=== PATIENT | male | born 1945 | race Native Hawaiian/Other Pacific Islander ===

== ENCOUNTER 2017-03-07 21:34 | Emergency (ER) | payer MEDICARE ==
[2014-01-07 13:11] VITALS: BMI 28.0
[2017-03-07] MEDS ORDERED: Iohexol 240 (50 ml) PO ONE (22:45)
[2017-03-07] MEDS ORDERED: Sodium Chloride 0.9% 1,000 ML IV ONE (22:46)
[2017-03-07 23:15] LABS: BASO # 0.1 K/uL (0.0-0.2); BASO % 0.5 % (0.0-2.0); EOS # 0.8 K/uL (0.0-0.7); EOS % 6.6 % (0.0-4.0); HEMATOCRIT 41.9 % (35.0-51.0); LYMPH # 1.6 K/uL (1.0-4.3); MEAN CELL VOLUME 88.1 fL (80.0-94.0); MEAN CORPUSCULAR HEMOGLOBIN 29.7 pg (27.0-31.0); MEAN CORPUSCULAR HGB CONC 33.7 g/dL (33.0-37.0); MEAN PLATELET VOLUME 8.2 fL (7.2-11.7); MONO # 0.4 K/uL (0.0-0.8); MONO % 3.4 % (0.0-10.0); RED CELL DISTRIBUTION WIDTH 13.2 % (11.5-14.5); WHITE BLOOD COUNT 12.1 K/uL (4.8-10.8)
[2017-03-07 23:17] LABS: CHLORIDE 92 mmol/L (98-107); POTASSIUM 4.2 mmol/L (3.6-5.2); SODIUM 128 mmol/L (132-148)
[2017-03-07 23:19] LABS: GFR AFRICAN-AMERICAN > 60
[2017-03-07 23:20] LABS: ALB/GLOB RATIO 1.3 (1.0-2.1); ALKALINE PHOSPHATASE 74 U/L (38-126); ALT/SGPT 29 U/L (21-72); AST/SGOT 19 U/L (17-59); BILIRUBIN,TOTAL 0.6 mg/dL (0.2-1.3); BLOOD UREA NITROGEN 13 mg/dL (9-20); CALCIUM 8.5 mg/dl (8.6-10.4); CARBON DIOXIDE 26 mmol/L (22-30); GLUCOSE,RANDOM 164 mg/dL (75-110)
[2017-03-07] MEDS ORDERED: Iohexol 240 (50 ml) ONE (23:22)
[2017-03-07] MEDS ORDERED: Sodium Chloride 0.9% 1,000 ML ONE (23:23)
--- NOTE | 2017-03-08 00:56 | C.PDOC ---
History Of Present Illness 71 year old male presents to the ED with complaints of intermittent abdominal pain fore a few days that began to worsen today. Patient describes pain as severe at times. He denies nausea, vomiting, fever, or chills. Chief Complaint (Nursing): Abdominal Pain History Per: Patient History/Exam Limitations: no limitations Onset/Duration Of Symptoms: Days, Intermittent Episodes, Worse Since (today) Current Symptoms Are (Timing): Still Present Location Of Pain/Discomfort: Diffuse Radiation Of Pain To:: None Quality Of Discomfort: "Pain" Associated Symptoms: denies: Fever, Chills, Nausea, Vomiting Exacerbating Factors: None Alleviating Factors: None Recent travel outside of the [place]: No Past Medical History Reviewed: Historical Data, Nursing Documentation, Vital Signs Vital Signs: Last Vital Signs Temp 97.6 F 03/08/17 01:20 Pulse 60 03/08/17 01:20 Resp 18 03/08/17 01:20 BP 177/73 H 03/08/17 01:20 Pulse Ox 98 03/08/17 02:22 - Medical History PMH: CAD, Gall Bladder Disease (CHOLECYSTECTOMY), HTN, Hypercholesterolemia Surgical History: Appendectomy, CABG (2 years ago (4-vessel)), Cholecystectomy - [facility] Procedures CORONAR ARTERIOGR-2 CATH (01/09/14) LAPAROSCOPIC CHOLECYSTECTOMY (04/28/13) LEFT HEART CARDIAC CATH (01/09/14) LT HEART ANGIOCARDIOGRAM (01/09/14) Family History: States: Unknown Family Hx - Social History Hx Tobacco Use: Yes Hx Alcohol Use: No Hx Substance Use: No - Immunization History Hx Tetanus Toxoid Vaccination: No Hx Influenza Vaccination: No Hx Pneumococcal Vaccination: No Review Of Systems Constitutional: Negative for: Fever, Chills Cardiovascular: Negative for: Chest Pain, Palpitations Respiratory: Negative for: Cough, Shortness of Breath Gastrointestinal: Positive for: Abdominal Pain. Negative for: Nausea, Vomiting , Diarrhea Physical Exam - Physical Exam Appears: Non-toxic, In Acute Distress (mild distress due to pain ) Skin: Warm, Dry Head: Atraumatic, Normacephalic Eye(s): bilateral: Normal Inspection, PERRL, EOMI Oral Mucosa: Moist Neck: Supple Chest: Symmetrical, No Deformity Cardiovascular: Rhythm Regular, No Murmur Respiratory: Normal Breath Sounds, No Rales, No Rhonchi, No Wheezing Gastrointestinal/Abdominal: Soft, Tenderness (mid abdominal tenderness ), Distention, No Guarding, No Rebound, Other (Appendectomy scar present, laparoscopic cholecystectomy scar also present) Neurological/Psych: Oriented x3 ED Course And Treatment - Laboratory Results Result Diagrams: 03/07/17 23:06 03/07/17 23:06 O2 Sat by Pulse Oximetry: 98 (RA) - CT Scan/US CT Abdomen and Pelvis With Intravenous Contrast Other Rad Studies (CT/US): Read By Radiologist, Radiology Report Reviewed CT/US Interpretation: FINDINGS: LOWER THORAX: Heart appears mildly enlarged. ABDOMEN: LIVER: Area of low density in the liver, near the falciform ligament, most compatible with focal fatty. infiltration. GALLBLADDER AND BILE DUCTS: Cholecystectomy clips. Mild biliary ductal dilatation, which may. be related to the post cholecystectomy state. No radiopaque common bile duct stones are visualized. Recommend correlation with LFTs as clinically indicated. PANCREAS : No CT evidence of acute pancreatitis. SPLEEN: No acute abnormality of the spleen identified. ADRENALS: 1.7 cm left adrenal lesion. This has features suggestive of a benign lesion, but it is. indeterminate on this exam. Recommend follow-up abdominal CT or MR in 12 months. Alternatively,. if there is a history of malignancy, consider further evaluation with PET, unenhanced abdominal CT or. MR. Calcifications of the right adrenal gland. KIDNEYS AND URETERS: 2 small low density lesions in the left kidney, most likely representing. cysts. The largest of these measures 1.3 cm. No acute abnormality of the kidneys identified. STOMACH AND BOWEL: Mild wall thickening involving the stomach, duodenum, and multiple. jejunal small bowel loops.This could represent pseudo-wall thickening due to. underdistention/incomplete distension versus mild gastroenteritis. Scattered colonic diverticulosis,. without evidence of diverticulitis. Duodenal diverticulum noted. APPENDIX: Normal appendix is not seen, however, there are no significant inflammatory changes. visualized in the expected location of the appendix to suggest appendicitis. Recommend clinical. correlation. PELVIS: BLADDER: Mild thickening of the bladder wall. REPRODUCTIVE: Small bilateral hydroceles incidentally noted. ABDOMEN and PELVIS: INTRAPERITONEAL SPACE:No evidence of free intraperitoneal air or fluid. BONES/JOINTS: Mild. osteoarthritic changes involving the hips bilaterally. SOFT TISSUES: Focal areas of subcutaneous edema in the anterior pelvic wall soft tissues. superficially. Findings could be secondary to bilateral subcutaneous injections.No evidence of focal. soft tissue fluid collection/abscess. VASCULATURE: Atherosclerotic calcification. No evidence of abdominal aortic aneurysm. LYMPH NODES: No evidence of diffuse lymphadenopathy. IMPRESSION: - Mild bladder wall thickening. This is a nonspecific finding, but can be seen with cystitis. Recommend clinical correlation. - Underdistention of the bowel versus mild gastroenteritis. Recommend clinical correlation. - Otherwise, no evidence of significant acute process. - Incidental adrenal lesion. See recommendations above. - See above for remaining findings. Progress Note: Abdomen pelvis CT, CXR, and labs were ordered. Patient was given Toradol and IV fluids. Disposition - Disposition Referrals: [facility] [Outside] Disposition: HOME/ ROUTINE Disposition Time: 03:13 Condition: STABLE Prescriptions: traMADol/Acetaminophen [Ultracet 325 MG-37.5 MG] 1 tab PO Q6 #14 tab Instructions: Abdominal Pain (ED) Forms: [employer] (Tajik) - POA Present On Arrival: None - Clinical Impression Clinical Impression: Abdominal pain, Diabetes mellitus - Scribe Statement The provider has reviewed the documentation as recorded by the Scribjohan Mckeon All medical record entries made by the Darinibjohan were at my direction and personally dictated by me. I have reviewed the chart and agree that the record accurately reflects my personal performance of the history, physical exam, medical decision making, and the department course for this patient. I have also personally directed, reviewed, and agree with the discharge instructions and disposition.
[2017-03-08] MEDS ORDERED: Iodixanol 320 MG/ML 100 ML BOTTLE IV ONE (01:14)
[2017-03-08 01:21] VITALS: PULSE 60
--- NOTE | 2017-03-08 02:20 | CT ---
EXAM: CT Abdomen and Pelvis With Intravenous Contrast EXAM DATE/TIME: 03/07/2017 10:45 PM CLINICAL HISTORY: 71 years old, male; Pain; Abdominal pain; Additional info: Abd pain TECHNIQUE: Axial computed tomography images of the abdomen and pelvis with intravenous contrast. All CT scans at this facility use one or more dose reduction techniques, viz.: automated exposure control; ma/kV adjustment per patient size (including targeted exams where dose is matched to indication; i.e. head); or iterative reconstruction technique. Coronal and sagittal reformatted images were created and reviewed. CONTRAST: 100 mL of [id number] administered intravenously. COMPARISON: No relevant prior studies available. FINDINGS: LOWER THORAX: Heart appears mildly enlarged. ABDOMEN: LIVER: Area of low density in the liver, near the falciform ligament, most compatible with focal fatty infiltration. GALLBLADDER AND BILE DUCTS: Cholecystectomy clips. Mild biliary ductal dilatation, which may be related to the post cholecystectomy state. No radiopaque common bile duct stones are visualized. Recommend correlation with LFTs as clinically indicated. PANCREAS: No CT evidence of acute pancreatitis. SPLEEN: No acute abnormality of the spleen identified. ADRENALS: 1.7 cm left adrenal lesion. This has features suggestive of a benign lesion, but it is indeterminate on this exam. Recommend follow-up abdominal CT or MR in 12 months. Alternatively, if there is a history of malignancy, consider further evaluation with PET, unenhanced abdominal CT or MR. Calcifications of the right adrenal gland. KIDNEYS AND URETERS: 2 small low density lesions in the left kidney, most likely representing cysts. The largest of these measures 1.3 cm. No acute abnormality of the kidneys identified. STOMACH AND BOWEL: Mild wall thickening involving the stomach, duodenum, and multiple jejunal small bowel loops.This could represent pseudo-wall thickening due to underdistention/incomplete distension versus mild gastroenteritis. Scattered colonic diverticulosis, without evidence of diverticulitis. Duodenal diverticulum noted. APPENDIX: Normal appendix is not seen, however, there are no significant inflammatory changes visualized in the expected location of the appendix to suggest appendicitis. Recommend clinical correlation. PELVIS: BLADDER: Mild thickening of the bladder wall. REPRODUCTIVE: Small bilateral hydroceles incidentally noted. ABDOMEN and PELVIS: INTRAPERITONEAL SPACE:No evidence of free intraperitoneal air or fluid. BONES/JOINTS: Mild osteoarthritic changes involving the hips bilaterally. SOFT TISSUES: Focal areas of subcutaneous edema in the anterior pelvic wall soft tissues superficially. Findings could be secondary to bilateral subcutaneous injections.No evidence of focal soft tissue fluid collection/abscess. VASCULATURE: Atherosclerotic calcification. No evidence of abdominal aortic aneurysm. LYMPH NODES: No evidence of diffuse lymphadenopathy. IMPRESSION: - Mild bladder wall thickening. This is a nonspecific finding, but can be seen with cystitis. Recommend clinical correlation. - Underdistention of the bowel versus mild gastroenteritis. Recommend clinical correlation. - Otherwise, no evidence of significant acute process. - Incidental adrenal lesion. See recommendations above. - See above for remaining findings.
[2017-03-08 03:36] VITALS: BP 136/60; RESP 20; TEMP 98; O2SAT 100
--- NOTE | 2017-03-08 08:15 | RAD ---
HISTORY: abd pain COMPARISON: Portable chest 01/31/2016. TECHNIQUE: Chest PA and lateral FINDINGS: LUNGS: No active pulmonary disease. PLEURA: No significant pleural effusion identified. No pneumothorax apparent. CARDIOVASCULAR: Mild cardiomegaly is stable. Sternotomy wires again noted. OSSEOUS STRUCTURES: No significant abnormalities. VISUALIZED UPPER ABDOMEN: Normal. OTHER FINDINGS: None. IMPRESSION: Stable cardiomegaly. No pulmonary vascular derangement. No acute pulmonary disease appreciable.
== END 2017-03-08 03:50 | disposition home or self-care (01) ==
LOC: C.ER 21:34
DX: R10.9 Unspecified abdominal pain (principal); E11.9 Type 2 diabetes mellitus without complications
CPT/HCPCS: 71020; 74177; 80053; 83690; 85025; 96361; 96374; 99285; J1885; J7040; Q9966; Q9967

== ENCOUNTER 2017-08-12 19:40 | Emergency (ER) | payer MEDICARE ==
[2014-01-07 13:11] VITALS: BMI 28.0
--- NOTE | 2017-08-12 20:09 | C.PDOC ---
History Of Present Illness 71 y/o male, with PMHx of HTN, diabetes, presents to ED for evaluation of elevated blood pressure and bilateral leg pain since this morning. Pt states he took extra medications after he find out his blood pressure was high, pt states his BP has improved now, was originally 212 systolic in triage. Denies chest pain, shortness of breath, fever, or other complaints at this time. pt smiling innad. denies trauma, no sob. Time Seen by Provider: 08/12/17 19:59 Chief Complaint (Nursing): High Blood Pressure History Per: Patient History/Exam Limitations: no limitations Onset/Duration Of Symptoms: Hrs Current Symptoms Are (Timing): Still Present Associated Symptoms: denies: Chest Pain, Dyspnea, Dizziness, Blurred Vision, Focal Weakness, Headache Quality Of Symptoms: Asymptomatic Recent travel outside of the [place]: No Additional History Per: Patient Past Medical History Reviewed: Historical Data, Nursing Documentation, Vital Signs Vital Signs: Last Vital Signs Temp 97.6 F 08/12/17 19:42 Pulse 57 L 08/12/17 19:56 Resp 20 08/12/17 19:42 BP 177/67 H 08/12/17 19:56 Pulse Ox 98 08/12/17 20:33 - Medical History PMH: CAD, Gall Bladder Disease (CHOLECYSTECTOMY), HTN, Hypercholesterolemia Denies: Chronic Kidney Disease Surgical History: Appendectomy, CABG (2 years ago (4-vessel)), Cholecystectomy - [facility] Procedures CORONAR ARTERIOGR-2 CATH (01/09/14) LAPAROSCOPIC CHOLECYSTECTOMY (04/28/13) LEFT HEART CARDIAC CATH (01/09/14) LT HEART ANGIOCARDIOGRAM (01/09/14) Family History: States: Unknown Family Hx - Social History Hx Tobacco Use: Yes Hx Alcohol Use: No (used to) Hx Substance Use: No - Immunization History Hx Tetanus Toxoid Vaccination: No Hx Influenza Vaccination: No Hx Pneumococcal Vaccination: No Review Of Systems Except As Marked, All Systems Reviewed And Found Negative. Constitutional: Negative for: Fever, Chills Cardiovascular: Negative for: Chest Pain, Palpitations Respiratory: Negative for: Cough, Shortness of Breath, Sputum Gastrointestinal: Negative for: Nausea, Vomiting, Abdominal Pain Musculoskeletal: Positive for: Leg Pain Neurological: Negative for: Headache, Dizziness Physical Exam - Physical Exam Appears: Non-toxic, No Acute Distress, Other (smiling) Skin: Normal Color, Warm, Dry Head: Atraumatic, Normacephalic Eye(s): bilateral: Normal Inspection Oral Mucosa: Moist Cardiovascular: Rhythm Regular, No Murmur Respiratory: Normal Breath Sounds, No Rales, No Rhonchi, No Wheezing Gastrointestinal/Abdominal: Soft, No Tenderness Extremity: Normal ROM, No Deformity Neurological/Psych: Oriented x3, Normal Speech ED Course And Treatment - Laboratory Results Result Diagrams: 08/12/17 20:12 08/12/17 20:12 ECG: Interpreted By Me, Viewed By Me ECG Rhythm: Sinus Bradycardia ECG Interpretation: No Acute Changes Interpretation Of ECG: Non-specific T wave changes. Rate From EC (bpm) O2 Sat by Pulse Oximetry: 98 (RA) Pulse Ox Interpretation: Normal Medical Decision Making Medical Decision Making: ro htn emergency vs urgency, will send dimer as no us avail to r/o dvt. Blood work, EKG ordered and reviewed. 845: pt reassessed: states all symptoms resolved. minimally elevatd dimer, no bleeding no blackburn, will dose lovenox, advise return in am for dvt study. states feels well ryan c. Disposition - Disposition Disposition: HOME/ ROUTINE Disposition Time: 20:45 Condition: STABLE Additional Instructions: return at 8 am for ultrasound of you rlegs. return immediately with any worsening symptoms or concerns. Instructions: Controlling Your Blood Pressure Through Lifestyle, High Blood Pressure (DC) Forms: [employer] (Greek) - Clinical Impression Clinical Impression: High blood pressure, Leg pain, Elevated d-dimer - Scribe Statement The provider has reviewed the documentation as recorded by the Scribjohan Byrnes All medical record entries made by the Scribe were at my direction and personally dictated by me. I have reviewed the chart and agree that the record accurately reflects my personal performance of the history, physical exam, medical decision making, and the department course for this patient. I have also personally directed, reviewed, and agree with the discharge instructions and disposition.
[2017-08-12 20:15] LABS: BASO % 0.7 % (0.0-2.0); EOS # 0.1 K/uL (0.0-0.7); EOS % 1.2 % (0.0-4.0); HEMOGLOBIN 13.8 g/dL (12.0-18.0); LYMPH # 1.4 K/uL (1.0-4.3); MEAN CORPUSCULAR HEMOGLOBIN 30.2 pg (27.0-31.0); MEAN CORPUSCULAR HGB CONC 34.3 g/dL (33.0-37.0); MEAN PLATELET VOLUME 7.8 fL (7.2-11.7); MONO # 0.3 K/uL (0.0-0.8); NEUT # 3.9 K/uL (1.8-7.0); NEUT % 67.1 % (50.0-75.0); NRBC % 0.1 % (0.0-2.0); RBC 4.57 Mil/uL (4.40-5.90); RED CELL DISTRIBUTION WIDTH 13.4 % (11.5-14.5); WHITE BLOOD COUNT 5.8 K/uL (4.8-10.8)
[2017-08-12 20:28] LABS: PROTHROMBIN TIME 10.9 SECONDS (9.7-12.2)
[2017-08-12 20:30] LABS: ALB/GLOB RATIO 1.3 (1.0-2.1); ALT/SGPT 21 U/L (21-72); AST/SGOT 38 U/L (17-59); BLOOD UREA NITROGEN 15 mg/dL (9-20); CALCIUM 8.7 mg/dl (8.6-10.4); GFR AFRICAN-AMERICAN > 60; GFR NON-AFRICAN AMERICAN > 60
[2017-08-12] MEDS ORDERED: Enoxaparin 150 mg Syringe SC STA (20:43)
[2017-08-12] MEDS ORDERED: Enoxaparin 80 mg Syringe ONE (20:51)
[2017-08-12 20:57] VITALS: BP 146/65; PULSE 52; RESP 16; TEMP 98.5; O2SAT 96
--- NOTE | 2017-08-14 20:22 | CARD ---
APPROVED REPORT EKG Measurement Heart [id number] <Conclusion> Sinus bradycardia Minimal voltage criteria for LVH, may be normal variant Nonspecific ST abnormality Abnormal ECG
== END 2017-08-12 20:58 | disposition home or self-care (01) ==
LOC: C.ER 19:40
DX: I10 Essential (primary) hypertension (principal); M79.605 Pain in left leg; M79.604 Pain in right leg; R79.89 Other specified abnormal findings of blood chemistry; E11.9 Type 2 diabetes mellitus without complications; E78.00 Pure hypercholesterolemia, unspecified; I25.10 Atherosclerotic heart disease of native coronary artery without angina pectoris; Z72.0 Tobacco use
CPT/HCPCS: 80053; 82948; 84484; 85025; 85378; 85610; 85730; 93005; 96372; 99284; J1650

== ENCOUNTER 2017-08-13 07:42 | Emergency (ER) | payer MEDICARE ==
[2017-08-13 07:50] VITALS: BMI 25.8
[2017-08-13 07:53] VITALS: RESP 18
[2017-08-13 08:57] LABS: B-TYPE NATRIURETIC PEPTIDE 96.5 pg/mL (0-900); CK-MB 0.49 ng/mL (0.0-3.38)
--- NOTE | 2017-08-13 09:44 | RAD ---
HISTORY: [place] COMPARISON: Chest x-ray performed 03/07/17 TECHNIQUE: Chest, one view. FINDINGS: LUNGS: Mild retrocardiac atelectasis/infiltrate. Please note that chest x-ray has limited sensitivity for the detection of pulmonary masses. PLEURA: No significant pleural effusion identified. No definite pneumothorax . CARDIOVASCULAR: Median sternotomy wires. Cardiomegaly OSSEOUS STRUCTURES: Degenerative changes. VISUALIZED UPPER ABDOMEN: Mild elevation of the right hemidiaphragm. OTHER FINDINGS: None. IMPRESSION: Median sternotomy wires. Cardiomegaly. Mild retrocardiac atelectasis/infiltrate.
--- NOTE | 2017-08-13 10:14 | C.PDOC ---
History Of Present Illness Pt c/o b/l feeling of legs are sore and tired. Pt states he has been exercising a lot. Possible mild dyspnea on exertion vs. deconditioning. Pt was evaluated here last night and instructed to return here this morning for LE duplex to r/o DVT. Time Seen by Provider: 08/13/17 07:57 Chief Complaint (Nursing): Lower Extremity Problem/Injury History Per: Patient, Family Onset/Duration Of Symptoms: Days (few) Current Symptoms Are (Timing): Still Present Exacerbating Factor(s): Exertion Severity: Moderate Associated Symptoms: Leg/Calf Pain (b/l). denies: Ankle/Leg Swelling Additional History Per: Prior Records Past Medical History Reviewed: Historical Data, Nursing Documentation, Vital Signs Vital Signs: Last Vital Signs Temp 97.3 F L 08/13/17 07:50 Pulse 66 08/13/17 09:12 Resp 18 08/13/17 08:30 BP 120/83 08/13/17 09:12 Pulse Ox 99 08/13/17 07:50 - Medical History PMH: CAD, Gall Bladder Disease (CHOLECYSTECTOMY), HTN, Hypercholesterolemia Surgical History: Appendectomy, CABG (2 years ago (4-vessel)), Cholecystectomy - [facility] Procedures CORONAR ARTERIOGR-2 CATH (01/09/14) LAPAROSCOPIC CHOLECYSTECTOMY (04/28/13) LEFT HEART CARDIAC CATH (01/09/14) LT HEART ANGIOCARDIOGRAM (01/09/14) Family History: States: Unknown Family Hx - Social History Hx Tobacco Use: Yes Hx Alcohol Use: No Hx Substance Use: No - Immunization History Hx Tetanus Toxoid Vaccination: No Hx Influenza Vaccination: No Hx Pneumococcal Vaccination: No Review Of Systems Except As Marked, All Systems Reviewed And Found Negative. Constitutional: Negative for: Fever Cardiovascular: Negative for: Chest Pain Respiratory: Positive for: SOB with Excertion (?). Negative for: Cough, Shortness of Breath (at rest), Hemoptysis Gastrointestinal: Negative for: Vomiting, Abdominal Pain Musculoskeletal: Positive for: Leg Pain. Negative for: Neck Pain, Back Pain Skin: Negative for: Rash Neurological: Negative for: Weakness, Numbness Physical Exam - Physical Exam Appears: Non-toxic, No Acute Distress Skin: Normal Color, Warm, Dry, No Rash Head: Atraumatic, Normacephalic Eye(s): bilateral: Normal Inspection, PERRL, EOMI Neck: Normal ROM, Supple Cardiovascular: Rhythm Regular Respiratory: Normal Breath Sounds, No Accessory Muscle Use Gastrointestinal/Abdominal: Soft, No Tenderness Back: No CVA Tenderness, No Vertebral Tenderness Extremity: Normal ROM, No Pedal Edema, No Deformity, No Swelling Extremity: Bilateral: Normal Color And Temperature Pulses: Left Dorsalis Pedis: Normal, Right Dorsalis Pedis: Normal Neurological/Psych: Oriented x3, Normal Motor, Normal Sensation ED Course And Treatment O2 Sat by Pulse Oximetry: 99 Pulse Ox Interpretation: Normal - Radiology CXR: Interpreted by Me, Viewed By Me CXR Interpretation: Yes: No Acute Disease - CT Scan/US b/l LE dupex Other Rad Studies (CT/US): Radiology Report Reviewed CT/US Interpretation: Negative for DVT Progress Note: Pt feels good and wants to go home. Reassessment Condition: Improved Disposition Counseled Patient/Family Regarding: Studies Performed, Diagnosis, Need For Followup - Disposition Referrals: Susan Manuel MD [Staff Provider] - Disposition: HOME/ ROUTINE Disposition Time: 10:17 Condition: STABLE Additional Instructions: Rest. Follow up with your doctor this week for further evaluation and treatment. Return to the ER if you develop chest pain, shortness of breath, worsening of symptoms or if you have any other concerns. Forms: [employer] (Japanese), General Discharge Instructions - Clinical Impression Clinical Impression: Leg pain, bilateral
[2017-08-13 10:25] VITALS: BP 126/86; PULSE 78; TEMP 98; O2SAT 98
--- NOTE | 2017-08-14 08:10 | VASCLAB ---
PROCEDURE: Lower Extremity Venous Duplex Exam. HISTORY: b/l leg pain r/o DVT PRIORS: None. TECHNIQUE: Bilateral common femoral, femoral, popliteal and posterior tibial, peroneal and great saphenous veins were evaluated. Flow was assessed with color Doppler, compressibility, assessment of phasic flow and augmentation response. Report prepared by GILMER Burk, RVT FINDINGS: RIGHT: 1. Common Femoral Vein: 1.1. Compressibility - Fully compressible: Thrombus - None : Flow - Phasic: Augmentation -Normal: Reflux - None. 2. Femoral Vein: 2.1. Compressibility - Fully compressible: Thrombus - None : Flow - Phasic: Augmentation -Normal: Reflux - None. 3. Popliteal Vein: 3.1. Compressibility - Fully compressible: Thrombus - None : Flow - Phasic: Augmentation -Normal: Reflux - None. 4. Posterior Tibial Vein: 4.1. Compressibility - Fully compressible: Thrombus - None: Flow - Phasic: Augmentation -Normal: Reflux - None. 5. Peroneal Vein: 5.1. Compressibility - Fully compressible: Thrombus - None: Flow - Phasic: Augmentation -Normal: Reflux - None. 6. Great Saphenous Vein: 6.1. Compressibility - Fully compressible: Thrombus - None: Flow - Phasic: Augmentation - Normal: Reflux - None. LEFT: 1. Common Femoral Vein: 1.1. Compressibility - Fully compressible: Thrombus - None: Flow - Phasic: Augmentation -Normal: Reflux - None. 2. Femoral Vein: 2.1. Compressibility - Fully compressible: Thrombus - None: Flow - Phasic: Augmentation -Normal: Reflux - None. 3. Popliteal Vein: 3.1. Compressibility - Fully compressible: Thrombus - None : Flow - Phasic: Augmentation -Normal: Reflux - None. 4. Posterior Tibial Vein: 4.1. Compressibility - Fully compressible: Thrombus - None: Flow - Phasic: Augmentation -Normal: Reflux - None. 5. Peroneal Vein: 5.1. Compressibility - Fully compressible: Thrombus - None: Flow - Phasic: Augmentation -Normal: Reflux - None. 6. Great Saphenous Vein: 6.1. Not visualized. OTHER FINDINGS: Right: None significant. Left: None significant. IMPRESSION: Right: No evidence of deep or superficial vein thrombosis of the right lower extremity. Normal valve function noted of the right side. Left: No evidence of deep or superficial vein thrombosis of the left lower extremity. Normal valve function noted of the left side.
== END 2017-08-13 10:25 | disposition home or self-care (01) ==
LOC: C.ER 07:42
DX: M79.605 Pain in left leg (principal); M79.604 Pain in right leg; E78.00 Pure hypercholesterolemia, unspecified; I10 Essential (primary) hypertension; I25.10 Atherosclerotic heart disease of native coronary artery without angina pectoris; Z72.0 Tobacco use

== ENCOUNTER 2018-01-01 21:53 | Inpatient (IN) | payer MEDICARE ==
[2018-01-01 21:54] VITALS: BMI 25.8
[2018-01-01] MEDS ORDERED: Aspirin 325 mg EC Tablets PO STA (22:24)
--- NOTE | 2018-01-01 22:24 | C.PDOC ---
History Of Present Illness Patient presenting to the ED complaining of chest discomfort starting approximately at 22:00. Denies nausea, vomiting, shortness of breath. Time Seen by Provider: 01/01/18 22:23 Chief Complaint (Nursing): Chest Pain History Per: Patient History/Exam Limitations: no limitations Onset/Duration Of Symptoms: Hrs Current Symptoms Are (Timing): Still Present Context: Other Severity: Moderate Pain Scale Rating Of: 4 Quality: Dull, Aching, Tightness, Pressure Associated Symptoms: denies: Nausea, Dyspnea Modifying Factors: None Exacerbating Factors: None Alleviating Factors: None Recent travel outside of the [place]: No Additional History Per: Family Past Medical History Reviewed: Historical Data, Nursing Documentation, Vital Signs Vital Signs: Last Vital Signs Temp 98.2 F 01/01/18 22:04 Pulse 63 01/01/18 22:04 Resp 16 01/01/18 22:04 BP 148/70 01/01/18 22:04 Pulse Ox 98 01/01/18 23:17 - Medical History PMH: CAD, Gall Bladder Disease (CHOLECYSTECTOMY), HTN, Hypercholesterolemia Surgical History: Appendectomy, CABG (2 years ago (4-vessel)), Cholecystectomy - [employer] Procedures CORONAR ARTERIOGR-2 CATH (01/09/14) LAPAROSCOPIC CHOLECYSTECTOMY (04/28/13) LEFT HEART CARDIAC CATH (01/09/14) LT HEART ANGIOCARDIOGRAM (01/09/14) Family History: States: No Known Family Hx - Social History Hx Tobacco Use: Yes Hx Alcohol Use: No Hx Substance Use: No - Immunization History Hx Tetanus Toxoid Vaccination: No Hx Influenza Vaccination: No Hx Pneumococcal Vaccination: No Review Of Systems Constitutional: Negative for: Fever, Chills Eyes: Negative for: Redness ENT: Negative for: Throat Pain Cardiovascular: Positive for: Chest Pain. Negative for: Palpitations Respiratory: Negative for: Shortness of Breath, Wheezing Gastrointestinal: Negative for: Nausea, Vomiting Genitourinary: Negative for: Dysuria Musculoskeletal: Negative for: Back Pain Skin: Negative for: Rash Neurological: Negative for: Weakness, Numbness Psych: Negative for: Anxiety Physical Exam - Physical Exam Appears: Non-toxic, No Acute Distress Skin: Warm, Dry Head: Normacephalic Eye(s): bilateral: Normal Inspection Oral Mucosa: Moist Neck: Trachea Midline, Supple Chest: Other (cabg scar) Cardiovascular: Rhythm Regular Respiratory: No Rales, No Rhonchi, No Wheezing Gastrointestinal/Abdominal: Soft, No Tenderness, No Distention Back: Normal Inspection Extremity: Pedal Edema (Trace), No Calf Tenderness Extremity: Bilateral: Atraumatic, Normal Color And Temperature, Normal ROM Pulses: Left Dorsalis Pedis: Normal, Right Dorsalis Pedis: Normal Neurological/Psych: Oriented x3, Normal Speech Gait: Steady ED Course And Treatment - Laboratory Results Result Diagrams: 01/01/18 22:39 01/01/18 22:39 ECG: Interpreted By Me, Viewed By Me ECG Rhythm: Sinus Rhythm (62), Nonspecific Changes O2 Sat by Pulse Oximetry: 98 (RA) Pulse Ox Interpretation: Normal - Radiology CXR: Interpreted by Me, Viewed By Me Progress Note: EKG, chest X-ray, urinalysis, and labs ordered. Disposition Discussed With DrAntwan: Susan Friedman-Gail Comment: accepted the pt on hie service and took over the care at 11:37PM Doctor Will See Patient In The: Hospital Counseled Patient/Family Regarding: Studies Performed, Diagnosis - Disposition Disposition: HOSPITALIZED Disposition Time: 22:23 Condition: FAIR Forms: [employer] (Indonesian) - POA Present On Arrival: Poor Glycemic Control - Clinical Impression Clinical Impression: Left sided chest pain - Scribe Statement The provider has reviewed the documentation as recorded by the Giana Portillo James Provider Attestation: All medical record entries made by the Giana were at my direction and personally dictated by me. I have reviewed the chart and agree that the record accurately reflects my personal performance of the history, physical exam, medical decision making, and the department course for this patient. I have also personally directed, reviewed, and agree with the discharge instructions and disposition. Decision To Admit - Pt Status Changed To: Hospital Disposition Of: Inpatient - Admit Certification Admit to Inpatient:: After my assessment, the patient will require hospitalization for at least two midnights. This is because of the severity of symptoms shown, intensity of services needed, and/or the medical risk in this patient being treated as an outpatient. - InPatient: Physician Admission Certification: I certify that this patient requires 2 or more midnights of care for the following reason:: After my assessment, the patient will require hospitalization for at least two midnights. This is because of the severity of symptoms shown, intensity of services needed, and/or the medical risk in this patient being treated as an outpatient. - . Bed Request Type: Telemetry Admitting Physician: Susan Manuel Patient Diagnosis: Left sided chest pain
[2018-01-01 22:48] LABS: BASO % 0.6 % (0.0-2.0); EOS # 0.1 K/uL (0.0-0.7); HEMOGLOBIN 13.1 g/dL (12.0-18.0); LYMPH # 1.9 K/uL (1.0-4.3); LYMPH % 27.5 % (20.0-40.0); MEAN CELL VOLUME 88.6 fL (80.0-94.0); MEAN CORPUSCULAR HEMOGLOBIN 30.3 pg (27.0-31.0); MEAN CORPUSCULAR HGB CONC 34.2 g/dL (33.0-37.0); MEAN PLATELET VOLUME 7.8 fL (7.2-11.7); MONO # 0.4 K/uL (0.0-0.8); MONO % 5.9 % (0.0-10.0); NEUT # 4.5 K/uL (1.8-7.0); NRBC % 0.1 % (0.0-2.0); RBC 4.3 Mil/uL (4.40-5.90); RED CELL DISTRIBUTION WIDTH 12.3 % (11.5-14.5); WHITE BLOOD COUNT 6.9 K/uL (4.8-10.8)
[2018-01-01 22:53] LABS: PROTHROMBIN TIME 11.4 SECONDS (9.7-12.2)
[2018-01-01 23:01] LABS: ALB/GLOB RATIO 1.4 (1.0-2.1); ALT/SGPT 36 U/L (21-72); AST/SGOT 29 U/L (17-59); BLOOD UREA NITROGEN 13 mg/dL (9-20); CALCIUM 9.1 mg/dl (8.6-10.4); GFR AFRICAN-AMERICAN > 60; GFR NON-AFRICAN AMERICAN > 60; LIPASE 82 U/L (23-300)
[2018-01-01 23:11] LABS: B-TYPE NATRIURETIC PEPTIDE 148 pg/mL (0-900)
[2018-01-01 23:25] LABS: URINE BILIRUBIN NEGATIVE (NEGATIVE); URINE BLOOD NEGATIVE (NEGATIVE); URINE CLARITY Clear (Clear); URINE COLOR Straw (YELLOW); URINE GLUCOSE (UA) 2+ mg/dL (Normal); URINE LEUKOCYTE ESTERASE NEG Leu/uL (Negative); URINE PROTEIN NEGATIVE (NEGATIVE); URINE UROBILINOGEN NORMAL mg/dL (0.2-1.0)
[2018-01-02] MEDS ORDERED: Dextrose 50% SYRINGE Inj (50 ml) IV PRN (00:17)
[2018-01-02] MEDS ORDERED: Glucagon Recombinant 1 mg Inj IM PRN (00:17)
[2018-01-02 03:21] LABS: CK-MB 0.72 ng/mL (0.0-3.38)
[2018-01-02] MEDS: Aspirin 325 mg EC Tablets PO SCH (09:26)
--- NOTE | 2018-01-02 11:34 | RAD ---
HISTORY: chest pain COMPARISON: Chest x-ray 08/13/2017 TECHNIQUE: Chest one view . FINDINGS: LUNGS: No focal consolidation is seen. PLEURA: No pleural effusion is identified. CARDIOVASCULAR: Stable cardiomegaly. Median sternotomy wires noted. OSSEOUS STRUCTURES: Hypertrophic degenerative changes noted bilateral acromioclavicular joints. Stable small calcification in the region of the left superior rotator cuff insertion, likely calcific tendinopathy. VISUALIZED UPPER ABDOMEN: Unremarkable. OTHER FINDINGS: None. IMPRESSION: No acute cardiopulmonary process seen. Stable cardiomegaly.
--- NOTE | 2018-01-02 12:05 | CP.PCM.HP ---
History of Present Illness - History of Present Illness History of Present Illness: This is a 72 y/o male with known history of CAD S/P CABG, diabetes, hypertension and hyperlipidemia who was admitted through the ER because of chest pain. He was seen in the office because of uncontrolled HTN and medications were adjusted. On his way home from the office, he claims that he started to feel lightheaded a few times with some fleeting chest pains. He rested for a few minutes and felt better. At home he rested but he continued to have on and off sharp pains on the chest lasting for a few secondsa each time. His BP reportedly went up to 190's and hence he decided to go to the ER and was subsequently admitted. Present on Admission - Present on Admission Any Indicators Present on Admission: No History of DVT/PE: No History of Uncontrolled Diabetes: No Review of Systems - Review of Systems Systems not reviewed;Unavailable: Unstable Vital Signs - Constitutional Constitutional: As Per HPI - EENT Eyes: Exophthalmos - Cardiovascular Cardiovascular: Chest Pain at Rest, Lightheadedness - Respiratory Respiratory: As Per HPI - Gastrointestinal Gastrointestinal: As Per HPI Past Patient History - Infectious Disease Hx of Infectious Diseases: None - Past Medical History & Family History Past Medical History?: Yes - Past Social History Smoking Status: Former Smoker Alcohol: None Drugs: Denies Home Situation {Lives}: With Family - CARDIAC Hx Cardiac Disorders: Yes Hx Hypercholesterolemia: Yes Hx Hypertension: Yes - PULMONARY Hx Respiratory Disorders: No - NEUROLOGICAL Hx Neurological Disorder: No - HEENT Hx HEENT Problems: Yes Hx Cataracts: Yes - RENAL Hx Chronic Kidney Disease: No - ENDOCRINE/METABOLIC Hx Endocrine Disorders: Yes Hx Diabetes Mellitus Type 2: Yes - HEMATOLOGICAL/ONCOLOGICAL Hx Blood Disorders: No - INTEGUMENTARY Hx Dermatological Problems: No - MUSCULOSKELETAL/RHEUMATOLOGICAL Hx Musculoskeletal Disorders: No Hx Falls: No - GASTROINTESTINAL Hx Gastrointestinal Disorders: Yes Hx Gall Bladder Disease: Yes (CHOLECYSTECTOMY) - GENITOURINARY/GYNECOLOGICAL Hx Genitourinary Disorders: No - PSYCHIATRIC Hx Psychophysiologic Disorder: No Hx Substance Use: No - SURGICAL HISTORY Hx Surgeries: Yes Hx Appendectomy: Yes Hx Cardiac Catheterization: Yes Hx Cholecystectomy: Yes Hx Coronary Artery Bypass Graft: Yes (2 years ago (4-vessel)) Hx Open Heart Surgery: Yes (CABG) - ANESTHESIA Hx Anesthesia: Yes Hx Anesthesia Reactions: No Hx Malignant Hyperthermia: No Has any member of the family had a problem w/ anesthesia?: No Meds Allergies/Adverse Reactions: Allergies Allergy/AdvReac Type Severity Reaction Status Date / Time hair dye Allergy Uncoded 01/01/18 22:02 Physical Exam - Constitutional Appears: No Acute Distress - Head Exam Head Exam: NORMAL INSPECTION - Eye Exam Eye Exam: Normal appearance - ENT Exam ENT Exam: Normal Exam - Neck Exam Neck exam: Positive for: Normal Inspection - Respiratory Exam Respiratory Exam: Clear to Auscultation Bilateral, NORMAL BREATHING PATTERN - Cardiovascular Exam Cardiovascular Exam: REGULAR RHYTHM, +S1, +S2 - GI/Abdominal Exam GI & Abdominal Exam: Normal Bowel Sounds, Soft - Extremities Exam Extremities exam: Positive for: normal inspection - Back Exam Back exam: NORMAL INSPECTION - Psychiatric Exam Psychiatric exam: Normal Affect, Normal Mood - Skin Skin Exam: Dry, Intact, Normal Color, Warm Results - Vital Signs Recent Vital Signs: Last Vital Signs Temp 98.2 F 01/02/18 08:00 Pulse 60 01/02/18 10:00 Resp 13 01/02/18 09:10 BP 153/62 H 01/02/18 09:30 Pulse Ox 98 01/02/18 05:00 - Labs Result Diagrams: 01/01/18 22:39 01/01/18 22:39 Labs: Laboratory Results - last 24 hr 01/01/18 01/01/18 01/01/18 22:39 22:39 22:39 WBC 6.9 RBC 4.30 L Hgb 13.1 Hct 38.1 MCV 88.6 MCH 30.3 MCHC 34.2 RDW 12.3 Plt Count 203 MPV 7.8 Neut % (Auto) 65.0 Lymph % (Auto) 27.5 Potter % (Auto) 5.9 Eos % (Auto) 1.0 Baso % (Auto) 0.6 Neut # (Auto) 4.5 Lymph # (Auto) 1.9 Potter # (Auto) 0.4 Eos # (Auto) 0.1 Baso # (Auto) 0.0 PT 11.4 INR 1.0 APTT 36 H Sodium 134 Potassium 4.2 Chloride 97 L Carbon Dioxide 26 Anion Gap 15 BUN 13 Creatinine 0.8 Est GFR ( Amer) > 60 Est GFR (Non-Af Amer) > 60 POC Glucose (mg/dL) Random Glucose 182 H Calcium 9.1 Total Bilirubin 0.5 AST 29 ALT 36 Alkaline Phosphatase 68 Total Creatine Kinase CK-MB (Mass) Troponin I < 0.0120 NT-Pro-B Natriuret Pep 148 Total Protein 6.9 Albumin 4.0 Globulin 2.9 Albumin/Globulin Ratio 1.4 Lipase 82 Urine Color Urine Clarity Urine pH Ur Specific [place] Urine Protein Urine Glucose (UA) Urine Ketones Urine Blood Urine Nitrate Urine Bilirubin Urine Urobilinogen Ur Leukocyte Esterase Urine RBC (Auto) 01/01/18 01/02/18 01/02/18 23:19 02:50 07:14 WBC RBC Hgb Hct MCV MCH MCHC RDW Plt Count MPV Neut % (Auto) Lymph % (Auto) Potter % (Auto) Eos % (Auto) Baso % (Auto) Neut # (Auto) Lymph # (Auto) Potter # (Auto) Eos # (Auto) Baso # (Auto) PT INR APTT Sodium Potassium Chloride Carbon Dioxide Anion Gap BUN Creatinine Est GFR ( Amer) Est GFR (Non-Af Amer) POC Glucose (mg/dL) 136 H Random Glucose Calcium Total Bilirubin AST ALT Alkaline Phosphatase Total Creatine Kinase 59 CK-MB (Mass) 0.72 Troponin I < 0.0120 NT-Pro-B Natriuret Pep Total Protein Albumin Globulin Albumin/Globulin Ratio Lipase Urine Color Straw Urine Clarity Clear Urine pH 6.0 Ur Specific [place] 1.008 Urine Protein Negative Urine Glucose (UA) 2+ H Urine Ketones Negative Urine Blood Negative Urine Nitrate Negative Urine Bilirubin Negative Urine Urobilinogen Normal Ur Leukocyte Esterase Neg Urine RBC (Auto) 1 01/02/18 01/02/18 08:12 11:05 WBC RBC Hgb Hct MCV MCH MCHC RDW Plt Count MPV Neut % (Auto) Lymph % (Auto) Potter % (Auto) Eos % (Auto) Baso % (Auto) Neut # (Auto) Lymph # (Auto) Potter # (Auto) Eos # (Auto) Baso # (Auto) PT INR APTT Sodium Potassium Chloride Carbon Dioxide Anion Gap BUN Creatinine Est GFR ( Amer) Est GFR (Non-Af Amer) POC Glucose (mg/dL) 303 H Random Glucose Calcium Total Bilirubin AST ALT Alkaline Phosphatase Total Creatine Kinase 74 CK-MB (Mass) 0.70 Troponin I < 0.0120 NT-Pro-B Natriuret Pep Total Protein Albumin Globulin Albumin/Globulin Ratio Lipase Urine Color Urine Clarity Urine pH Ur Specific [place] Urine Protein Urine Glucose (UA) Urine Ketones Urine Blood Urine Nitrate Urine Bilirubin Urine Urobilinogen Ur Leukocyte Esterase Urine RBC (Auto) Assessment & Plan - Assessment and Plan (Free Text) Assessment: 1) 74 y/o male with CAD, S/P CABG, diabetic and hypertensive admitted because of chest pain. R/O ACS. First EKG and KHAI are wnl. He has lso been running relatively high BP with SBP ~190-220. Serial KHAI and EKG ordered for the patient and his medications for both the HTN and cardiac condition have been reordered. Echocardiogram and nuclear stress test done a few months ago did not show any significant segmental wall motion abnormality nor residual myocardial ischemia. 2) Hypertension- uncontrolled lately and hence patient's meds have been adjusted. 3) Diabetes Mellitus. Accucheck ordered and his antidiabetic meds and insulin ordered. Will check HgbA1c. 4) Hyperlipidemia- on statin. Decision To Admit - Pt Status Changed To: Hospital Disposition Of: Inpatient - Admit Certification Admit to Inpatient:: After my assessment, the patient will require hospitalization for at least two midnights. This is because of the severity of symptoms shown, intensity of services needed, and/or the medical risk in this patient being treated as an outpatient. - InPatient: Physician Admission Certification:: After my assessment, the patient will require hospitalization for at least two midnights. This is because of the severity of symptoms shown, intensity of services needed, and/or the medical risk in this patient being treated as an outpatient. - . Bed Request Type: Telemetry Admitting Physician: Susan Manuel
[2018-01-02] MEDS: (Novolin R) Insulin Human Regular 100 units/ml vial SC SCH ×3 (12:36→22:24)
[2018-01-02] MEDS: Enoxaparin 40 mg Syringe SC SCH (12:37)
[2018-01-02] MEDS: Naproxen 275 mg Tab PO SCH (17:38)
[2018-01-02] MEDS ORDERED: (Lantus) Insulin Glargine, Recombinant SC SCH (22:00)
[2018-01-03 06:35] LABS: HEMOGLOBIN 14.2 g/dL (12.0-18.0); MEAN CELL VOLUME 90.1 fL (80.0-94.0); MEAN CORPUSCULAR HEMOGLOBIN 30.7 pg (27.0-31.0); MEAN CORPUSCULAR HGB CONC 34.1 g/dL (33.0-37.0); MEAN PLATELET VOLUME 8.2 fL (7.2-11.7); RBC 4.62 Mil/uL (4.40-5.90); RED CELL DISTRIBUTION WIDTH 12.8 % (11.5-14.5); WHITE BLOOD COUNT 5.4 K/uL (4.8-10.8)
[2018-01-03 07:03] LABS: LDL CHOLESTEROL 55 mg/dL (0-129)
[2018-01-03 07:07] LABS: BLOOD UREA NITROGEN 16 mg/dL (9-20); CALCIUM 8.4 mg/dl (8.6-10.4); GFR AFRICAN-AMERICAN > 60; GFR NON-AFRICAN AMERICAN > 60; HDL CHOLESTEROL 28 mg/dL (30-70)
[2018-01-03] MEDS: (Novolin R) Insulin Human Regular 100 units/ml vial SC SCH ×4 (08:16→22:49)
[2018-01-03] MEDS: Enoxaparin 40 mg Syringe SC SCH (10:10)
[2018-01-03] MEDS: Aspirin 325 mg EC Tablets PO SCH (10:10)
[2018-01-03] MEDS: Naproxen 275 mg Tab PO SCH ×2 (10:10→16:59)
--- NOTE | 2018-01-03 13:54 | CARD ---
APPROVED REPORT Date of service: 01/01/2018 EKG Measurement Heart [id number] <Conclusion> Normal sinus rhythm Normal ECG
--- NOTE | 2018-01-03 17:13 | CP.PCM.PN ---
Subjective - Date & Time of Evaluation Date of Evaluation: 01/03/18 Time of Evaluation: 16:50 - Subjective Subjective: -patient c/o some on and off atypical pain on the chest -BP elevated now- 218/96taken 3x and got almost the same numbers -all troponins are normal; EKG- wnl -will increase Carvedilol. Continue to HR and BPmonitor Objective - Vital Signs/Intake and Output Vital Signs (last 24 hours): Temp Pulse Resp BP Pulse Ox 97.8 F 65 16 170/76 H 99 01/03/18 04:00 01/03/18 04:00 01/03/18 04:00 01/03/18 16:59 01/03/18 04:00 Intake and Output: 01/03/18 01/03/18 06:59 18:59 Intake Total 340 Output Total 500 Balance -160 - Medications Medications: Current Medications Amlodipine Besylate (Norvasc) 5 mg PO DAILY [facility] Last Admin: 01/03/18 10:10 Dose: 5 mg Aspirin (Ecotrin) 325 mg PO DAILY [facility] Last Admin: 01/03/18 10:10 Dose: 325 mg Carvedilol (Coreg) 12.5 mg PO BID [facility] Last Admin: 01/03/18 16:59 Dose: 12.5 mg Clonidine HCl (Catapres) 0.1 mg PO Q12H [facility] Last Admin: 01/03/18 12:06 Dose: 0.1 mg Clopidogrel Bisulfate (Plavix) 75 mg PO DAILY [facility] Last Admin: 01/03/18 10:10 Dose: 75 mg Dextrose (Dextrose 50% Inj) 0 ml IV STAT PRN; Protocol PRN Reason: Hypoglycemia Protocol Dextrose (Glutose 15) 0 gm PO ONCE PRN; Protocol PRN Reason: Hypoglycemia Protocol Docusate Sodium (Colace) 100 mg PO BID [facility] Last Admin: 01/03/18 16:59 Dose: 100 mg Enoxaparin Sodium (Lovenox) 40 mg SC DAILY [facility] Last Admin: 01/03/18 10:10 Dose: 40 mg Glucagon (Glucagen Diagnostic Kit) 0 mg IM STAT PRN; Protocol PRN Reason: Hypoglycemia Protocol Dextrose (Dextrose 5% In Water 1000 Ml) 1,000 mls @ 0 mls/hr IV .Q0M PRN; Protocol; Per Protocol PRN Reason: Hypoglycemia Protocol Insulin Glargine (Lantus) 15 unit SC [facility] Last Admin: 01/02/18 22:22 Dose: Not Given Insulin Human Regular (Novolin R) 0 unit SC [facility] PRN Reason: Protocol Last Admin: 01/03/18 12:06 Dose: 4 units Losartan Potassium (Cozaar) 100 mg PO DAILY [facility] Last Admin: 01/03/18 10:11 Dose: 100 mg Metformin HCl (Glucophage) 500 mg PO BID [facility] Last Admin: 01/03/18 16:59 Dose: 500 mg Naproxen (Anaprox) 275 mg PO BID [facility] Last Admin: 01/03/18 16:59 Dose: 275 mg Rosuvastatin Calcium (Crestor) 10 mg PO [facility] Last Admin: 01/02/18 22:25 Dose: 10 mg - Labs Labs: 01/03/18 06:21 01/03/18 06:21 PT 11.4 SECONDS (9.7-12.2) 01/01/18 22:39 INR 1.0 01/01/18 22:39 APTT 36 SECONDS (21-34) H 01/01/18 22:39 - Constitutional Appears: No Acute Distress - Head Exam Head Exam: NORMOCEPHALIC - Eye Exam Pupil Exam: NORMAL ACCOMODATION - ENT Exam ENT Exam: Normal Exam - Neck Exam Neck Exam: Normal Inspection - Respiratory Exam Respiratory Exam: Clear to Ausculation Bilateral, NORMAL BREATHING PATTERN - Cardiovascular Exam Cardiovascular Exam: REGULAR RHYTHM, +S1, +S2 - GI/Abdominal Exam GI & Abdominal Exam: Soft, Normal Bowel Sounds - Extremities Exam Extremities Exam: Full ROM, Normal Inspection - Neurological Exam Neurological Exam: Alert, Awake, Oriented x3 - Psychiatric Exam Psychiatric exam: Normal Affect, Normal Mood - Skin Skin Exam: Dry, Intact, Normal Color, Warm Assessment and Plan - Assessment and Plan (Free Text) Assessment: 1) Chest pain. R/O ACS. Normal troponins and EKG wnl ruling out ACS. 2) Hypertension- remains uncontrolled. BP obtained just now 218/96. repeated a few times. Will adjust Coreg 3) Diabetes Mellitus- HgbA1c- 7.0. Continue current treatment. 4) Hyperlipidemia- on statin.
[2018-01-03] MEDS: (Lantus) Insulin Glargine, Recombinant SC SCH (21:45)
[2018-01-04] MEDS: (Novolin R) Insulin Human Regular 100 units/ml vial SC SCH ×4 (09:14→22:00)
[2018-01-04] MEDS: Enoxaparin 40 mg Syringe SC SCH (09:14)
[2018-01-04] MEDS: Naproxen 275 mg Tab PO SCH (09:15)
[2018-01-04] MEDS: Aspirin 325 mg EC Tablets PO SCH (09:15)
--- NOTE | 2018-01-04 16:13 | CP.PCM.PN ---
Subjective - Date & Time of Evaluation Date of Evaluation: 01/04/18 Time of Evaluation: 14:15 - Subjective Subjective: Patient continues to run high BP. BP taken at the bedside 202/90 3x. Will give another dose of Amlodipine and continue to monitor BP. Objective - Vital Signs/Intake and Output Vital Signs (last 24 hours): Temp Pulse Resp BP Pulse Ox 98.3 F 65 18 125/67 100 01/04/18 08:05 01/04/18 08:05 01/04/18 08:05 01/04/18 09:17 01/04/18 08:05 Intake and Output: 01/04/18 01/04/18 06:59 18:59 Intake Total 120 300 Balance 120 300 - Medications Medications: Current Medications Amlodipine Besylate (Norvasc) 10 mg PO DAILY [facility] Aspirin (Ecotrin) 325 mg PO DAILY [facility] Last Admin: 01/04/18 09:15 Dose: 325 mg Carvedilol (Coreg) 25 mg PO BID [facility] Last Admin: 01/04/18 09:17 Dose: 25 mg Clonidine HCl (Catapres) 0.1 mg PO Q12H [facility] Last Admin: 01/04/18 12:31 Dose: 0.1 mg Clopidogrel Bisulfate (Plavix) 75 mg PO DAILY [facility] Last Admin: 01/04/18 09:14 Dose: 75 mg Dextrose (Dextrose 50% Inj) 0 ml IV STAT PRN; Protocol PRN Reason: Hypoglycemia Protocol Dextrose (Glutose 15) 0 gm PO ONCE PRN; Protocol PRN Reason: Hypoglycemia Protocol Docusate Sodium (Colace) 100 mg PO BID [facility] Last Admin: 01/04/18 09:15 Dose: 100 mg Enoxaparin Sodium (Lovenox) 40 mg SC DAILY [facility] Last Admin: 01/04/18 09:14 Dose: 40 mg Glucagon (Glucagen Diagnostic Kit) 0 mg IM STAT PRN; Protocol PRN Reason: Hypoglycemia Protocol Dextrose (Dextrose 5% In Water 1000 Ml) 1,000 mls @ 0 mls/hr IV .Q0M PRN; Protocol; Per Protocol PRN Reason: Hypoglycemia Protocol Insulin Glargine (Lantus) 20 unit SC HS [facility] Last Admin: 01/03/18 21:45 Dose: 20 units Insulin Human Regular (Novolin R) 0 unit SC [facility] PRN Reason: Protocol Last Admin: 01/04/18 12:30 Dose: 6 units Losartan Potassium (Cozaar) 100 mg PO DAILY [facility] Last Admin: 01/04/18 09:18 Dose: 100 mg Metformin HCl (Glucophage) 500 mg PO BID [facility] Last Admin: 01/03/18 16:59 Dose: 500 mg Rosuvastatin Calcium (Crestor) 10 mg PO HS [facility] Last Admin: 01/03/18 21:46 Dose: 10 mg - Labs Labs: 01/03/18 06:21 01/03/18 06:21 PT 11.4 SECONDS (9.7-12.2) 01/01/18 22:39 INR 1.0 01/01/18 22:39 APTT 36 SECONDS (21-34) H 01/01/18 22:39 - Constitutional Appears: No Acute Distress - Head Exam Head Exam: NORMOCEPHALIC - Eye Exam Eye Exam: Normal appearance - ENT Exam ENT Exam: Normal Exam - Neck Exam Neck Exam: Normal Inspection - Respiratory Exam Respiratory Exam: Clear to Ausculation Bilateral, NORMAL BREATHING PATTERN - Cardiovascular Exam Cardiovascular Exam: REGULAR RHYTHM, +S1, +S2 - GI/Abdominal Exam GI & Abdominal Exam: Soft, Normal Bowel Sounds - Extremities Exam Extremities Exam: Normal Inspection - Neurological Exam Neurological Exam: Alert, Awake, Oriented x3 - Psychiatric Exam Psychiatric exam: Normal Affect, Normal Mood Assessment and Plan - Assessment and Plan (Free Text) Assessment: 1) Hypertension- remains uncontrolled. BP obtained just now 208/90. repeated a few times. Given extra Amlodipine and to increase daily dose to 10 mg. 3) Diabetes Mellitus- HgbA1c- 7.0. Continue current treatment. 4) Hyperlipidemia- on statin.
[2018-01-04 16:34] VITALS: RESP 20
--- NOTE | 2018-01-04 21:26 | CARD ---
APPROVED REPORT Date of service: 01/02/2018 EKG Measurement Heart [id number] <Conclusion> Sinus bradycardia Otherwise normal ECG
[2018-01-04] MEDS: (Lantus) Insulin Glargine, Recombinant SC SCH (22:40)
[2018-01-05] MEDS: (Novolin R) Insulin Human Regular 100 units/ml vial SC SCH ×2 (07:48→11:49)
[2018-01-05] MEDS: Enoxaparin 40 mg Syringe SC SCH (09:56)
[2018-01-05] MEDS ORDERED: POLYETHYLENE GLYCOL 3350 17 GM/Dose PACKET PO ONE (14:46)
--- NOTE | 2018-01-05 15:59 | CP.PCM.PN ---
Subjective - Date & Time of Evaluation Date of Evaluation: 01/05/18 Time of Evaluation: 15:30 - Subjective Subjective: Patient complains of constipation BP remains high despite multiple adjustment of meds. Claims that he cannot relax here and he wants to go home because he feels fine. Objective - Vital Signs/Intake and Output Vital Signs (last 24 hours): Temp Pulse Resp BP Pulse Ox 98.0 F 59 L 20 172/78 H 99 01/05/18 07:10 01/05/18 14:16 01/05/18 07:10 01/05/18 14:16 01/05/18 07:10 Intake and Output: 01/05/18 01/05/18 06:59 18:59 Intake Total 300 400 Balance 300 400 - Medications Medications: Current Medications Amlodipine Besylate (Norvasc) 10 mg PO DAILY [facility] Last Admin: 01/05/18 14:17 Dose: 10 mg Aspirin (Ecotrin) 81 mg PO DAILY [facility] Last Admin: 01/05/18 09:54 Dose: 81 mg Carvedilol (Coreg) 25 mg PO BID [facility] Last Admin: 01/05/18 09:56 Dose: Not Given Clonidine HCl (Catapres) 0.1 mg PO Q12H [facility] Last Admin: 01/05/18 12:27 Dose: 0.1 mg Clopidogrel Bisulfate (Plavix) 75 mg PO DAILY [facility] Last Admin: 01/05/18 09:55 Dose: 75 mg Dextrose (Dextrose 50% Inj) 0 ml IV STAT PRN; Protocol PRN Reason: Hypoglycemia Protocol Dextrose (Glutose 15) 0 gm PO ONCE PRN; Protocol PRN Reason: Hypoglycemia Protocol Docusate Sodium (Colace) 100 mg PO BID [facility] Last Admin: 01/05/18 09:54 Dose: 100 mg Enoxaparin Sodium (Lovenox) 40 mg SC DAILY [facility] Last Admin: 01/05/18 09:56 Dose: 40 mg Glucagon (Glucagen Diagnostic Kit) 0 mg IM STAT PRN; Protocol PRN Reason: Hypoglycemia Protocol Hydrochlorothiazide (Hydrodiuril) 25 mg PO DAILY [facility] Last Admin: 01/05/18 09:55 Dose: 25 mg Insulin Glargine (Lantus) 20 unit SC HS [facility] Last Admin: 01/04/18 22:40 Dose: 20 units Insulin Human Regular (Novolin R) 0 unit SC ACHS [facility] PRN Reason: Protocol Last Admin: 01/05/18 11:49 Dose: Not Given Losartan Potassium (Cozaar) 100 mg PO DAILY [facility] Last Admin: 01/05/18 09:55 Dose: 100 mg Metformin HCl (Glucophage) 500 mg PO BID [facility] Last Admin: 01/05/18 09:54 Dose: 500 mg Rosuvastatin Calcium (Crestor) 10 mg PO HS [facility] Last Admin: 01/04/18 22:41 Dose: 10 mg - Labs Labs: 01/03/18 06:21 01/03/18 06:21 PT 11.4 SECONDS (9.7-12.2) 01/01/18 22:39 INR 1.0 01/01/18 22:39 APTT 36 SECONDS (21-34) H 01/01/18 22:39
[2018-01-05 16:07] VITALS: BP 180/74; TEMP 97.7; O2SAT 98
[2018-01-05 16:13] VITALS: PULSE 70
--- NOTE | 2018-01-18 15:09 | CP.PCM.DIS ---
Provider - Provider Date of Admission: 01/01/18 23:34 Attending physician: Susan Manuel MD Primary care physician: Ab Manuel Time Spent in preparation of Discharge (in minutes): 20 Diagnosis - Discharge Diagnosis (1) Chest pain Status: Acute (2) Diabetes mellitus Status: Chronic (3) History of coronary artery disease Status: Chronic Priority: Medium (4) Hyperlipidemia associated with type 2 diabetes mellitus Status: Chronic Priority: Medium (5) Hypertension Status: Chronic Priority: High Hospital Course - Lab Results Lab Results: Micro Results 01/04/18 00:03 Naris MRSA Culture - Final MRSA NOT DETECTED 01/02/18 06:39 Nose MRSA Culture (Admit) - Final MRSA NOT DETECTED Most Recent Lab Values WBC 5.4 K/uL (4.8-10.8) 01/03/18 06:21 RBC 4.62 Mil/uL (4.40-5.90) 01/03/18 06:21 Hgb 14.2 g/dL (12.0-18.0) 01/03/18 06:21 Hct 41.6 % (35.0-51.0) 01/03/18 06:21 MCV 90.1 fL (80.0-94.0) 01/03/18 06:21 MCH 30.7 pg (27.0-31.0) 01/03/18 06:21 MCHC 34.1 g/dL (33.0-37.0) 01/03/18 06:21 RDW 12.8 % (11.5-14.5) 01/03/18 06:21 Plt Count 202 K/uL (130-400) 01/03/18 06:21 MPV 8.2 fL (7.2-11.7) 01/03/18 06:21 Neut % (Auto) 65.0 % (50.0-75.0) 01/01/18 22:39 Lymph % (Auto) 27.5 % (20.0-40.0) 01/01/18 22:39 [place]ler % (Auto) 5.9 % (0.0-10.0) 01/01/18 22:39 Eos % (Auto) 1.0 % (0.0-4.0) 01/01/18 22:39 Baso % (Auto) 0.6 % (0.0-2.0) 01/01/18 22:39 Neut # (Auto) 4.5 K/uL (1.8-7.0) 01/01/18 22:39 Lymph # (Auto) 1.9 K/uL (1.0-4.3) 01/01/18 22:39 Candler # (Auto) 0.4 K/uL (0.0-0.8) 01/01/18 22:39 Eos # (Auto) 0.1 K/uL (0.0-0.7) 01/01/18 22:39 Baso # (Auto) 0.0 K/uL (0.0-0.2) 01/01/18 22:39 PT 11.4 SECONDS (9.7-12.2) 01/01/18 22:39 INR 1.0 01/01/18 22:39 APTT 36 SECONDS (21-34) H 01/01/18 22:39 Sodium 137 mmol/L (132-148) 01/03/18 06:21 Potassium 4.6 mmol/L (3.6-5.2) 01/03/18 06:21 Chloride 103 mmol/L (98-107) 01/03/18 06:21 Carbon Dioxide 26 mmol/L (22-30) 01/03/18 06:21 Anion Gap 12 (10-20) 01/03/18 06:21 BUN 16 mg/dL (9-20) 01/03/18 06:21 Creatinine 0.7 mg/dL (0.8-1.5) L 01/03/18 06:21 Est GFR ( Amer) > 60 01/03/18 06:21 Est GFR (Non-Af Amer) > 60 01/03/18 06:21 POC Glucose (mg/dL) 141 mg/dL (65-110) H 01/05/18 11:24 Random Glucose 150 mg/dL (75-110) H 01/03/18 06:21 Hemoglobin A1c 7.0 % (4.2-6.5) H 01/03/18 06:21 Calcium 8.4 mg/dl (8.6-10.4) L 01/03/18 06:21 Total Bilirubin 0.5 mg/dL (0.2-1.3) 01/01/18 22:39 AST 29 U/L (17-59) 01/01/18 22:39 ALT 36 U/L (21-72) 01/01/18 22:39 Alkaline Phosphatase 68 U/L (38-126) 01/01/18 22:39 Total Creatine Kinase 74 U/L (55-170) 01/02/18 08:12 CK-MB (Mass) 0.70 ng/mL (0.0-3.38) 01/02/18 08:12 Troponin I < 0.0120 ng/mL (0.00-0.120) 01/02/18 08:12 NT-Pro-B Natriuret Pep 148 pg/mL (0-900) 01/01/18 22:39 Total Protein 6.9 g/dL (6.3-8.3) 01/01/18 22:39 Albumin 4.0 g/dL (3.5-5.0) 01/01/18 22:39 Globulin 2.9 gm/dL (2.2-3.9) 01/01/18 22:39 Albumin/Globulin Ratio 1.4 (1.0-2.1) 01/01/18 22:39 Triglycerides 163 mg/dL (0-149) H 01/03/18 06:21 Cholesterol 113 mg/dL (0-199) 01/03/18 06:21 LDL Cholesterol Direct 55 mg/dL (0-129) 01/03/18 06:21 HDL Cholesterol 28 mg/dL (30-70) L 01/03/18 06:21 Lipase 82 U/L (23-300) 01/01/18 22:39 Urine Color Straw (YELLOW) 01/01/18 23:19 Urine Clarity Clear (Clear) 01/01/18 23:19 Urine pH 6.0 (5.0-8.0) 01/01/18 23:19 Ur Specific Festus 1.008 (1.003-1.030) 01/01/18 23:19 Urine Protein Negative mg/dL (NEGATIVE) 01/01/18 23:19 Urine Glucose (UA) 2+ mg/dL (Normal) H 01/01/18 23:19 Urine Ketones Negative mg/dL (NEGATIVE) 01/01/18 23:19 Urine Blood Negative (NEGATIVE) 01/01/18 23:19 Urine Nitrate Negative (NEGATIVE) 01/01/18 23:19 Urine Bilirubin Negative (NEGATIVE) 01/01/18 23:19 Urine Urobilinogen Normal mg/dL (0.2-1.0) 01/01/18 23:19 Ur Leukocyte Esterase Neg Neena/uL (Negative) 01/01/18 23:19 Urine RBC (Auto) 1 /hpf (0-3) 01/01/18 23:19 - Hospital Course Hospital Course: This is a 72 y/o male patient with known CAD,s/p CABG, HTN, DM and hyperlipidemia who was admitted from the ER because of chest pain and lightheadedness and dizziness. 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 His EKG and serum troponins did not show any evidence of an acute cardiac event but his BP remained despite adjustments made in his meds. He claims that he cannot relax in the hospital and after a few days was asymptomatic. He decided to sign AMA despite the persistently high BP. Discharge Exam - Head Exam Head Exam: NORMAL INSPECTION, NORMOCEPHALIC - Eye Exam Eye Exam: Normal appearance - ENT Exam ENT Exam: Normal Exam - Neck Exam Neck exam: Normal Inspection - Respiratory Exam Respiratory Exam: Clear to PA & Lateral, NORMAL BREATHING PATTERN - Cardiovascular Exam Cardiovascular Exam: REGULAR RHYTHM, +S1, +S2 - GI/Abdominal Exam GI & Abdominal Exam: Normal Bowel Sounds, Soft - Rectal Exam Rectal Exam: NORMAL INSPECTION - Neurological Exam Neurological exam: Alert, Oriented x3 - Psychiatric Exam Psychiatric exam: Normal Affect, Normal Mood - Skin Skin Exam: Dry, Intact, Warm Discharge Plan - Follow Up Plan Condition: FAIR Disposition: AGAINST MEDICAL ADVICE Additional Instructions: FOLLOW UP WITH DR LUCIO IN HER OFFICE IN 1 -2 WEEK ---CALL FOR APPOINTMENT\ CONTINUE HOME MEDICATION ACTIVITY TOLERATED CALL DR LUCIO OR GO TO THE EMERGENCY ROOM IF SYMPTOMS RETURN OR WORSENING Referrals: Susan Manuel MD [Staff Provider] -
== END 2018-01-05 16:20 | disposition left against medical advice (07) | DRG 303 ==
LOC: C.ER 21:53 → C.9E 23:34 → C.9I 01-02 01:26 → C.6T 01-03 22:43
PROVIDERS: ADMIT Internal Medicine Cardiovascular Disease; ATTEND Internal Medicine Cardiovascular Disease
DX: I25.110 Atherosclerotic heart disease of native coronary artery with unstable angina pectoris (principal); I10 Essential (primary) hypertension; E78.00 Pure hypercholesterolemia, unspecified; E11.9 Type 2 diabetes mellitus without complications; Z87.891 Personal history of nicotine dependence; Z95.1 Presence of aortocoronary bypass graft; Z79.4 Long term (current) use of insulin